=== PATIENT | male | born 1995 | race Caucasian/White ===

== ENCOUNTER 2017-03-04 17:32 | Emergency (ER) | payer OTHER ==
[~2017-03-04] VITALS: Ht 177.8 cm; Wt 84.0 kg
[2017-03-04 17:33] VITALS: BP 131/84; PULSE 81; RESP 14; TEMP 97.8; O2SAT 99
--- NOTE | 2017-03-04 17:42 | PD ---
Physical Exam Time Seen by Provider: 17:40 Narrative 21yo M c/o r facial cheek swelling today. Says the area is tender. Denies dental pain, airway edema, difficulty swallowing , sore throat. Denies fever, vomiting. Patient seen in triage. VS reviewed. Awaiting bed placement. Data Data Last Documented VS Vital Signs Date Time Temp Pulse Resp B/P (MAP) Pulse Ox O2 Delivery O2 Flow Rate FiO2 03/04/17 17:33 97.8 81 14 131/84 (100) 99 MDM Supervised Visit with ROBERTO: Claudia Ortega Mar 04, 2017 17:42
--- NOTE | 2017-03-04 17:48 | PD ---
HPI . right sided cheek swelling x few hours Chief Complaint: Edema Time Seen by Provider: 17:48 Travel History International Travel<30 days: No Contact w/Intl Traveler<30days: No Traveled to known affect area: No History of Present Illness HPI 21-year-old male here with complaints of right cheek swelling. Patient says out of the blue his cheeks will upon him. He works at [employer] and is not certain if he came into contact with something he may be allergic to. He tells me he has previously had allergy testing for the was told that he was not allergic to anything. He denies any shortness of breath, difficulty swallowing or breathing. He denies any itching. He says it feels tight, similar to when a "pimple" is forming. He denies any teeth problems. PFSH Past Medical History Medical History: Denies Significant Hx Social History Tobacco Use: No Allergies-Medications (Allergen,Severity, Reaction): Coded Allergies: No Known Allergies (Unverified , 03/04/17) Review of Systems General / Constitutional: No: Fever Eyes: No: Visual changes HENT: Positive: Other (right cheek swelling), No: Headaches Cardiovascular: No: Chest Pain or Discomfort Respiratory: No: Shortness of Breath Gastrointestinal: No: Abdominal Pain Genitourinary: No: Dysuria Musculoskeletal: No: Pain Skin: No Rash Neurologic: No: Weakness Psychiatric: No: Depression Endocrine: No: Polydipsia Hematologic/Lymphatic: No: Easy Bruising Physical Exam Narrative GENERAL: AAO x 3, no acute distress, Well-nourished, well-developed patient. SKIN: Warm and dry. No visible rashes or bruising. minimal right cheek edema without erythema. no fluid collection, no palpable masses HEAD: Normocephalic and atraumatic. EYES: No scleral icterus. No injection or drainage. EOM intact, PERRLA ENT: No nasal drainage noted. Mucous membranes pink. Airway patent. no oropharynx abn. NECK: Supple, trachea midline. No JVD. CARDIOVASCULAR: Regular rate and rhythm without murmurs, gallops, or rubs. RESPIRATORY: Breath sounds equal bilaterally. No accessory muscle use. No rhonchi or rales. GASTROINTESTINAL: visual inspection normal EXTREMITIES: No cyanosis or edema. BACK: No obvious deformity. NEURO: CN II-12 intact, PSYCH: AAO x 3, normal affect. Data Data Last Documented VS Vital Signs Date Time Temp Pulse Resp B/P (MAP) Pulse Ox O2 Delivery O2 Flow Rate FiO2 03/04/17 17:33 97.8 81 14 131/84 (100) 99 MDM Medical Decision Making Medical Screen Exam Complete: Yes Emergency Medical Condition: Yes Medical Record Reviewed: Yes Differential Diagnosis localized skin reaction, insect bite, less likely cellulitis Narrative Course 21-year-old male here with complaints of right cheek swelling. On examination patient has some very minimal right sided cheek swelling. There is no other abnormality. I do not suspect infection. There may be some localized reaction. I do not feel further workup or treatment recommended. Advised OTC benadryl. Advise follow-up with primary care provider. Discussed if his symptoms return or worsen, go to the nurse emergency department. Advised if any shortness of breath or difficulty breathing, go to the nearest emergency department. Patient verbalized understanding of instructions, questions were answered, and thanked me for their care. I advised them if their condition worsens, please return to the nearest emergency room for further care. Diagnosis Primary Impression: Cheek swelling Patient Instructions: General Instructions Additional Instructions: Try Benadryl at home. If you develop any difficulty breathing or trouble eating, go to the nearest emergency department. Follow-up with your primary care provider. Med/Other Pt SpecificInfo: No Change to Meds Disposition: 01 DISCHARGE HOME Condition: Stable Edel Kapoor Mar 04, 2017 17:48
== END 2017-03-04 18:16 | disposition home or self-care (01) ==
LOC: NEPK 17:32
DX: R22.0 Localized swelling, mass and lump, head (principal)
CPT/HCPCS: 99282